=== PATIENT | male | born 1970 | race Caucasian/White ===

== ENCOUNTER 2021-08-16 15:39 | Emergency (ER) | payer MEDICAID ==
[~2021-08-16] VITALS: Ht 170.2 cm; Wt 78.0 kg
[2021-08-16] MEDS ORDERED: BO1 TP (16:21)
[2021-08-16 16:56] VITALS: BP 115/93
== END 2021-08-16 17:10 | disposition home or self-care (01) ==
LOC: ER 15:39
DX: T20.10XA Burn of first degree of head, face, and neck, unspecified site, initial encounter (principal); T22.112A Burn of first degree of left forearm, initial encounter; T22.111A Burn of first degree of right forearm, initial encounter; X19.XXXA Contact with other heat and hot substances, initial encounter; Y93.89 Activity, other specified; Y92.9 Unspecified place or not applicable
CPT/HCPCS: 99283